=== PATIENT | male | born 1960 | race Two or more races ===

== ENCOUNTER 2018-10-08 13:43 | Emergency (ER) | payer OTHER ==
[~2018-10-08] VITALS: Ht 162.6 cm; Wt 72.6 kg
[~2018-10-08 13:43] MED LIST: APAP/HYDROCODON1 T13 PO; BG MC; CIPRO500 MG PO; FLA500 PO; GLU850 PO; PRI20 PO
[2018-10-08 13:55] VITALS: Ht 162.6 cm; Wt 72.6 kg
[2018-10-08 16:28] VITALS: BP 120/77
== END 2018-10-08 16:28 | disposition home or self-care (01) ==
LOC: ED 13:43
DX: M54.5 Low back pain (principal); I10 Essential (primary) hypertension; E11.9 Type 2 diabetes mellitus without complications; E78.00 Pure hypercholesterolemia, unspecified
CPT/HCPCS: J1885; J3010